=== PATIENT | female | born 1950 | race Caucasian/White ===

== ENCOUNTER 2019-04-02 07:19 | Day surgery (SDC) | payer MEDICARE, OTHER ==
[~2019-04-02 07:19] MED LIST: Lactated Ringers 1,000 ML IV SCH; Sodium Chloride 0.9% 10 ML Syringe FLUSH PRN
[2019-04-02] MEDS ORDERED: fentaNYL 100 MCG/2 ML SDV ONE (08:58)
[2019-04-02] MEDS ORDERED: Midazolam 1 MG/ML 2 ML SDV ONE (08:58)
[2019-04-02] MEDS ORDERED: Propofol 200 MG/20 ML SDV ONE (08:59)
[2019-04-02] MEDS ORDERED: Simethicone Drops 40 MG/0.6 ML 30 ML Bottle ONE (09:19)
[2019-04-02] MEDS ORDERED: Ondansetron 4 MG/2 ML SDV ONE (09:51)
--- NOTE | 2019-04-02 10:36 | OR ---
DATE OF SURGERY: 04/02/2019. REFERRING PROVIDER: Lalitha Ledbetter DO. PRE-OPERATIVE DIAGNOSES: History of colon polyps. Last colonoscopy was in 2012 and showed some adenomas. Also had polyps in 2009. POST-OPERATIVE DIAGNOSES: 1. A total of 10 polyps removed (2 using hot snare and 8 using cold forceps). a. Cecal polyp x3. 7 mm polyp removed using hot snare and 2 mm x2 using cold forceps. b. 2 mm polyp at 90 cm, removed using cold forceps. c. 2 mm at 80 cm, removed using cold forceps. d. 2 mm x2 at 70 cm, removed using cold forceps. e. 2 mm at 65 cm, removed using cold forceps. f. 5 mm polyp at 30 cm, removed using hot snare and 2 mm removed using cold forceps. 2. Mild sigmoid diverticulosis. PROCEDURE: Colonoscopy with polypectomy x10 (2 using hot snare and 8 using cold forceps). SURGEON: Siva Vasquez M.D. ANESTHESIA: Monitored anesthesia care. BOWEL PREP: Good. Shanita is a 68-year-old female, was brought to the endoscopy suite after discussing risks and benefits of the procedure. Informed consent was obtained for conscious sedation and colonoscopy with or without biopsy and/or polypectomy. We also discussed possibility of missed lesions. Pre-procedure exam was unremarkable. IV, oxygen, and monitors were placed. The patient was placed in the left lateral decubitus position. Sedation was administered and a digital rectal exam was performed and unremarkable. Colonoscope was passed into the rectum and slowly advanced all the way to the cecum. Cecum was viewed and photographed. Three polyps were noted in the cecum, the largest being 7 mm in size. This one was removed using hot snare with the smaller 2 mm x2 polyps removed using cold forceps. The colonoscope was slowly withdrawn and the mucosa was closed observed in a direct circumferential manner. The ascending colon revealed 2 mm polyp at 90 cm, removed with cold forceps. The transverse colon revealed a 2 mm polyp at 80 cm, 2 mm polyp x2 at 70 cm, and 2 mm polyp at 65 cm, all removed using cold forceps. The descending colon was unremarkable. The sigmoid colon revealed some mild diverticulosis. There was also a 5 mm and 2 mm polyp at 30 cm, the larger of which was removed with hot snare and smaller removed with cold forceps. Retroflexion was performed and rectal mucosa was otherwise unremarkable. Scope was removed. The patient tolerated the procedure well. The patient was monitored until that baseline status. Discharge instructions were reviewed and the patient was discharged in good condition. COMPLICATIONS: None except for we did lose camera feed for about 1 minute during the procedure after the Trap device was removed. TOTAL TIME: Total scope time, 48 minutes. ESTIMATED BLOOD LOSS: About 1 mL. RECOMMENDATIONS/FOLLOW-UP: We will await results of path report to determine ideal followup interval. We will have the patient hold her aspirin for about 5 days to limit any chance of bleeding. I would like to kindly thank Lalitha Ledbetter for this referral. DMB: 04/02/2019 10:13:55 MODL: 04/02/2019 10:29:20 /[id number]
[2019-04-02 12:01] VITALS: BP 106/54; PULSE 53
== END 2019-04-02 11:54 | disposition home or self-care (01) ==
LOC: VM.SDS 07:19
PROVIDERS: ATTEND Family Medicine
DX: Z12.11 Encounter for screening for malignant neoplasm of colon (principal); D12.0 Benign neoplasm of cecum; D12.4 Benign neoplasm of descending colon; D12.5 Benign neoplasm of sigmoid colon; D12.3 Benign neoplasm of transverse colon; K63.5 Polyp of colon; K57.30 Diverticulosis of large intestine without perforation or abscess without bleeding; K21.9 Gastro-esophageal reflux disease without esophagitis; I12.9 Hypertensive chronic kidney disease with stage 1 through stage 4 chronic kidney disease, or unspecified chronic kidney disease; N18.2 Chronic kidney disease, stage 2 (mild); E78.5 Hyperlipidemia, unspecified; F32.9 Major depressive disorder, single episode, unspecified; G47.33 Obstructive sleep apnea (adult) (pediatric); G25.81 Restless legs syndrome; G43.109 Migraine with aura, not intractable, without status migrainosus; M17.11 Unilateral primary osteoarthritis, right knee; M19.012 Primary osteoarthritis, left shoulder; Z88.2 Allergy status to sulfonamides; Z88.8 Allergy status to other drugs, medicaments and biological substances; Z99.89 Dependence on other enabling machines and devices; Z86.010 Personal history of colon polyps; Z79.82 Long term (current) use of aspirin; Z91.09 Other allergy status, other than to drugs and biological substances
CPT/HCPCS: 00812; 45380; 45385; 88305; J2250; J2405; J2704; J3010; J7120; 45384

== ENCOUNTER 2020-04-19 16:17 | Emergency (ER) | payer MEDICARE, OTHER ==
[2020-04-19] MEDS ORDERED: Sodium Chloride 0.9% 10 ML Syringe FLUSH PRN (16:30)
[2020-04-19] MEDS ORDERED: Morphine 4 MG/ML Syringe IVPUSH ONE (16:32)
[2020-04-19] MEDS ORDERED: Ketorolac 15 MG/ML SDV IVPUSH ONE (16:32)
--- NOTE | 2020-04-19 16:58 | EDM.PDOC ---
ED HPI GENERAL MEDICAL PROBLEM - General Stated Complaint: CHEST PAINS Time Seen by Provider: 04/19/20 16:20 Source of Information: Reports: Patient History Limitations: Reports: No Limitations - History of Present Illness INITIAL COMMENTS - FREE TEXT/NARRATIVE: Pt. presents to ER from clinic. She relates that she started experiencing L sided anterior chest pain that started at around 1PM this afternoon. Pt. states that it is sharp in nature. No radiation into the jaw, arms, neck or back. She states that the discomfort is worse with palpation and lying down. Denies exertion, but states that she was doing housework when the discomfort started. Denies any cough. No fever or chills. No nausea, vomiting, or diarrhea. She states that she took aspirin and a dose of nitroglycerine prior to presenting to ER. She states that she has not experienced pain like this in the past. Pt. underwent upper endoscopy for recurrent upper abdominal discomfort and refux. She denies any epigastric pain. She is s/p cholecystectomy. Pt. denies any history of CAD other than essential hypertension. She is a non- smoker, non-drinker. Onset: Today Onset Date: 04/19/20 Onset Time: 13:00 Location: Reports: Chest Quality: Reports: Sharp Severity: Severe Left Chest Pain Score (Numeric/FACES): 3 - Related Data Allergies Allergy/AdvReac Type Severity Reaction Status Date / Time Sulfa (Sulfonamide Allergy Unknown Rash Verified 04/19/20 17:25 Antibiotics) gadobutrol [From Gadavist] AdvReac Intermediate Renal Verified 04/19/20 17:25 Failure MRI contrast Allergy Cannot Uncoded 04/02/19 07:35 Remember Home Meds: Home Meds FLUoxetine HCl [Fluoxetine HCl] 20 mg PO DAILY 12/10/13 [History] Losartan [Cozaar] 50 mg PO DAILY 12/10/13 [History] Pantoprazole Sodium 4 mg PO BID 12/10/13 [History] Pravastatin [Pravachol] 20 mg PO DAILY 12/10/13 [History] Acetaminophen [Tylenol Extra Strength] 500 mg PO Q4HR PRN 03/26/19 [History] Calcium Carbonate/Vitamin D3 [Caltrate 600+D 1500 MG-400 Units] 1 tab PO BIDMEALS 03/26/19 [History] Cholecalciferol (Vitamin D3) [Vitamin D3] 1,000 unit PO BID 03/26/19 [History] Cranberry Fruit Extract [Cranberry] 1,000 mg PO DAILY 03/26/19 [History] Ibuprofen [Advil] 200 mg PO Q6HR PRN 03/26/19 [History] Lysine Acetate [Lysine 4000] 500 mg PO DAILY 03/26/19 [History] Montelukast [Singulair] 10 mg PO DAILY 03/26/19 [History] Ondansetron [Zofran ODT] 4 mg PO Q6HR PRN 03/26/19 [History] Propranolol [Inderal LA 24 Hr] 180 mg PO DAILY 03/26/19 [History] Propylene Glycol/Peg 400 [Systane Ultra 0.4-0.3% Eye Drp] 1 drop EYEBOTH Q4HR PRN 03/26/19 [History] SUMAtriptan succinate [Imitrex] 100 mg PO ASDIRECTED PRN 03/26/19 [History] amLODIPine [Norvasc] 2.5 mg PO DAILY 03/26/19 [History] cycloSPORINE [Restasis] 1 drop EYEBOTH BID 03/26/19 [History] ClonazePAM [KlonoPIN] 0.5 mg PO BEDTIME 04/19/20 [History] Nitroglycerin [Nitrostat] 0.4 mg SL ASDIRECTED PRN 04/19/20 [History] dexAMETHasone [Dexamethasone Intensol] 4 ml PO QID 04/19/20 [History] polyethylene glycoL 3350 [MiraLAX] 17 gm PO DAILY 04/19/20 [History] rOPINIRole [Requip] 1 mg PO BEDTIME 04/19/20 [History] Past Medical History HEENT History: Reports: Allergic Rhinitis, Other (See Below) Other HEENT History: Astigmatism. Pseudophakia. Iris transillumination. Vitreous hemorrhage- left. Amblyopia. Dry eye syndrome of both eyes Cardiovascular History: Reports: High Cholesterol, Hypertension Respiratory History: Reports: Sleep Apnea Gastrointestinal History: Reports: GERD Other Gastrointestinal History: Dysphagia Genitourinary History: Reports: Other (See Below) Other Genitourinary History: frequency Musculoskeletal History: Reports: Arthritis, Osteoporosis, Other (See Below) Other Musculoskeletal History: Bursitis Neurological History: Reports: Migraines Other Neuro History: Parasomnia. restless leg syndrome. REM sleep behavior disorder Psychiatric History: Reports: Depression Dermatologic History: Reports: Other (See Below) Other Dermatologic History: Lichen planus - Past Surgical History Cardiovascular Surgical History: Reports: None Social & Family History - Caffeine Use Caffeine Use: Reports: Coffee, Soda ED ROS GENERAL - Review of Systems Review Of Systems: See Below Constitutional: Reports: No Symptoms. Denies: Fever, Chills, Malaise, Weakness HEENT: Reports: No Symptoms Respiratory: Reports: Pleuritic Chest Pain. Denies: Cough Cardiovascular: Reports: No Symptoms Endocrine: Reports: No Symptoms GI/Abdominal: Reports: No Symptoms : Reports: No Symptoms Musculoskeletal: Reports: No Symptoms Skin: Reports: Diaphoresis Neurological: Reports: No Symptoms Psychiatric: Reports: No Symptoms Hematologic/Lymphatic: Reports: No Symptoms Immunologic: Reports: No Symptoms ED EXAM, GENERAL - Physical Exam Exam: See Below Exam Limited By: No Limitations General Appearance: Alert, WD/WN, No Apparent Distress Head: Atraumatic, Normocephalic Respiratory/Chest: No Respiratory Distress, Lungs Clear, Normal Breath Sounds, No Accessory Muscle Use, Other (L anterior chest pain worse with palpation) Cardiovascular: Normal Peripheral Pulses, Regular Rate, Rhythm, No Edema, No Gallop Peripheral Pulses: 4+: Radial (L) GI/Abdominal: Soft, Non-Tender, No Distention, No Mass (Female) Exam: Deferred Rectal (Female) Exam: Deferred Back Exam: Normal Inspection, Full Range of Motion Extremities: Normal Inspection, Normal Range of Motion, Non-Tender, No Pedal Edema, Normal Capillary Refill Neurological: Alert, Oriented, CN II-XII Intact, Normal Cognition, Normal Gait, Normal Reflexes, No Motor/Sensory Deficits Psychiatric: Normal Affect, Normal Mood Skin Exam: Warm, Intact, Normal Color, Other (moist) Lymphatic: No Adenopathy Course - Vital Signs Last Recorded V/S: Last Vital Signs Temp 36.6 C 04/19/20 18:31 Pulse 60 04/19/20 18:31 Resp 14 04/19/20 18:31 BP 126/78 04/19/20 18:31 Pulse Ox 96 04/19/20 18:31 - Orders/Labs/Meds Labs: Laboratory Tests 04/19/20 04/19/20 04/19/20 Range/Units 16:52 16:52 16:52 WBC 9.9 (4.0-10.0) x10^3/uL RBC 4.85 (4.00-5.50) x10^6/uL Hgb 14.6 (12.0-16.0) g/dL Hct 45.0 (33.0-47.0) % MCV 92.8 D (78.0-93.0) fL MCH 30.1 (26.0-32.0) pg MCHC 32.4 (32.0-36.0) g/dL RDW Coeff of Avril 13.7 (10.0-15.0) % Plt Count 288 D (130-400) x10^3/uL Neut % (Auto) 53.8 (50.0-80.0) % Lymph % (Auto) 33.9 (25.0-50.0) % Chester % (Auto) 9.9 (2.0-11.0) % Eos % (Auto) 1.8 (0.0-4.0) % Baso % (Auto) 0.6 (0.2-1.2) % PT 9.2 L (9.5-12.3) SEC INR 0.8 L (2.0-3.5) D-Dimer, Quantitative 0.73 H (<=0.58) mg/LFEU Sodium (136-145) mmol/L Potassium (3.5-5.1) mmol/L Chloride (98-107) mmol/L Carbon Dioxide (21-32) mmol/L Anion Gap (10-20) mmol/L BUN (7-18) mg/dL Creatinine (0.55-1.02) mg/dL Est Cr Clr Drug Dosing Estimated GFR (MDRD) Glucose (74-106) mg/dL Calcium (8.5-10.1) mg/dL Corrected Calcium (8.5-10.1) mg/dL Magnesium 2.4 (1.8-2.4) mg/dL Total Bilirubin (0.2-1.0) mg/dL AST (15-37) U/L ALT (14-59) U/L Alkaline Phosphatase (46-116) U/L Troponin I < 0.017 (<=0.056) ng/mL C-Reactive Protein 0.2 (<=0.9) mg/dL NT-Pro-B Natriuret Pep 120 (<=125) pg/mL Total Protein (6.4-8.2) g/dL Albumin (3.4-5.0) g/dL Globulin Albumin/Globulin Ratio 04/19/20 Range/Units 16:52 WBC (4.0-10.0) x10^3/uL RBC (4.00-5.50) x10^6/uL Hgb (12.0-16.0) g/dL Hct (33.0-47.0) % MCV (78.0-93.0) fL MCH (26.0-32.0) pg MCHC (32.0-36.0) g/dL RDW Coeff of Avril (10.0-15.0) % Plt Count (130-400) x10^3/uL Neut % (Auto) (50.0-80.0) % Lymph % (Auto) (25.0-50.0) % Chester % (Auto) (2.0-11.0) % Eos % (Auto) (0.0-4.0) % Baso % (Auto) (0.2-1.2) % PT (9.5-12.3) SEC INR (2.0-3.5) D-Dimer, Quantitative (<=0.58) mg/LFEU Sodium 141 (136-145) mmol/L Potassium 4.7 (3.5-5.1) mmol/L Chloride 106 (98-107) mmol/L Carbon Dioxide 25 (21-32) mmol/L Anion Gap 14.7 (10-20) mmol/L BUN 25 H (7-18) mg/dL Creatinine 1.3 H (0.55-1.02) mg/dL Est Cr Clr Drug Dosing TNP Estimated GFR (MDRD) 40 Glucose 102 (74-106) mg/dL Calcium 8.6 (8.5-10.1) mg/dL Corrected Calcium 9.16 (8.5-10.1) mg/dL Magnesium (1.8-2.4) mg/dL Total Bilirubin 0.2 (0.2-1.0) mg/dL AST 9 L (15-37) U/L ALT 23 (14-59) U/L Alkaline Phosphatase 59 (46-116) U/L Troponin I (<=0.056) ng/mL C-Reactive Protein (<=0.9) mg/dL NT-Pro-B Natriuret Pep (<=125) pg/mL Total Protein 6.9 (6.4-8.2) g/dL Albumin 3.3 L (3.4-5.0) g/dL Globulin 3.6 Albumin/Globulin Ratio 0.92 Meds: Medications Discontinued Medications Generic Name Dose Route Start Last Admin Trade Name Adithya PRN Reason Stop Dose Admin Iopamidol 100 ml 04/19/20 18:11 04/19/20 18:25 Isovue-300 (61%) IVPUSH 04/19/20 18:12 100 ml ONETIME ONE Administration Ketorolac Tromethamine 15 mg 04/19/20 16:32 04/19/20 17:03 Toradol IVPUSH 04/19/20 16:33 15 mg ONETIME ONE Administration Morphine Sulfate 4 mg 04/19/20 16:32 04/19/20 16:59 Morphine IVPUSH 04/19/20 16:33 4 mg ONETIME ONE Administration Sodium Chloride 10 ml 04/19/20 16:30 Saline Flush FLUSH ASDIRECTED PRN Keep Vein Open Departure - Departure Time of Disposition: 20:00 Disposition: Home, Self-Care 01 Clinical Impression: Atypical chest pain - Discharge Information Instructions: Atelectasis, Adult, Nonspecific Chest Pain, Adult, [id number] Referrals: Lalitha Ledbetter, [Primary Care Provider] - Forms: ED Department Discharge Additional Instructions: Home to rest. Work on taking deep breaths once every 1-2 hours. Tylenol as needed for discomfort. Recheck in clinic in 7-10 days. - Problem List Review Problem List Initiated/Reviewed/Updated: Yes - Assessment/Plan Plan: Home to rest. Work on taking deep breaths once every 1-2 hours. Tylenol as needed for discomfort. Recheck in clinic in 7-10 days.
--- NOTE | 2020-04-19 17:08 | CR ---
[id number] RAD/RAD Chest PA And Lateral EXAM: RAD Chest PA And Lateral CLINICAL DATA: SYNCOPE BRADYCARDIA COMPARISON: CORRELATION IS MADE WITH AUGUST 25, 2012 FINDINGS: There is scarring at both lung bases The lungs otherwise are clear The cardiomediastinal contour is stable Surgical changes of the cervical spine are seen IMPRESSION: NO PNEUMONIA OR EDEMA Timmy Sloan MD 04/19/20 [id number] Thank you for allowing us to participate in the care of your patient.
[2020-04-19 17:42] LABS: ANION GAP 14.7 mmol/L (10-20); CHLORIDE,CL 106 mmol/L (98-107); SODIUM,NA 141 mmol/L (136-145)
[2020-04-19] MEDS ORDERED: Iopamidol 612 MG/ML 100 ML Bottle IVPUSH ONE (18:11)
[2020-04-19 18:53] VITALS: BP 126/78; PULSE 60
--- NOTE | 2020-04-19 19:17 | CT ---
[id number] CT/CTA Chest Exam: CTA Chest Clinical Data: CHEST PAIN. POSITIVE D-DIMER COMPARISON: CORRELATION IS MADE WITH JANUARY 09, 2016 FINDINGS: Mild bibasilar infiltrates are seen thought to be hypoventilatory. There are no pulmonary emboli. There is a fatty appearance of the liver. The great vessels are intact. There is no mediastinal mass or adenopathy A small segment hepatic cyst is stable IMPRESSION: NO PULMONARY EMBOLI Timmy Sloan MD 04/19/20 [id number] Thank you for allowing us to participate in the care of your patient.
== END 2020-04-19 19:30 | disposition home or self-care (01) ==
LOC: VM.ED 16:17
DX: R07.89 Other chest pain (principal); I10 Essential (primary) hypertension; E78.00 Pure hypercholesterolemia, unspecified; K21.9 Gastro-esophageal reflux disease without esophagitis; F32.9 Major depressive disorder, single episode, unspecified; Z88.2 Allergy status to sulfonamides; Z91.041 Radiographic dye allergy status; Z79.899 Other long term (current) drug therapy
CPT/HCPCS: 36415; 71046; 71275; 80053; 83735; 83880; 84484; 85025; 85379; 85610; 86140; 93005; 96374; 96375; 99285-25; J1885; J2270; Q9967

== ENCOUNTER 2022-12-20 09:12 | Day surgery (SDC) | payer MEDICARE, OTHER ==
[2022-12-20] MEDS ORDERED: Propofol 200 MG/20 ML SDV ONE (10:05)
[2022-12-20] MEDS ORDERED: fentaNYL 100 MCG/2 ML SDV ONE (10:06)
[2022-12-20] MEDS ORDERED: Citric Acid/Sodium Citrate Solution 30 ML Cup PO ONE (10:24)
[2022-12-20 12:21] VITALS: BP 126/66; PULSE 84
== END 2022-12-20 13:00 | disposition home or self-care (01) ==
LOC: VM.SDS 09:12
PROVIDERS: ATTEND Family Medicine
DX: Z12.11 Encounter for screening for malignant neoplasm of colon (principal); D12.6 Benign neoplasm of colon, unspecified; K57.30 Diverticulosis of large intestine without perforation or abscess without bleeding; K64.8 Other hemorrhoids; I12.9 Hypertensive chronic kidney disease with stage 1 through stage 4 chronic kidney disease, or unspecified chronic kidney disease; N18.30 Chronic kidney disease, stage 3 unspecified; M81.0 Age-related osteoporosis without current pathological fracture; G47.33 Obstructive sleep apnea (adult) (pediatric); F41.9 Anxiety disorder, unspecified; F32.A Depression, unspecified; G43.909 Migraine, unspecified, not intractable, without status migrainosus; K21.9 Gastro-esophageal reflux disease without esophagitis; E78.5 Hyperlipidemia, unspecified; M06.00 Rheumatoid arthritis without rheumatoid factor, unspecified site; Z88.2 Allergy status to sulfonamides; Z86.010 Personal history of colon polyps; Z91.041 Radiographic dye allergy status; Z91.048 Other nonmedicinal substance allergy status; Z98.890 Other specified postprocedural states; Z79.899 Other long term (current) drug therapy
CPT/HCPCS: 00811; 45380; A9270; J2704; J3010; J7120; 88305